=== PATIENT | female | born 1970 | race Caucasian/White ===

== ENCOUNTER 2020-09-25 23:26 | Emergency (ER) | payer MEDICAID ==
[~2020-09-25] VITALS: Ht 165.1 cm; Wt 100.0 kg
[~2020-09-25 23:26] MED LIST: PREN-88 PO
[2020-09-26] MEDS ORDERED: AMOXICILLIN 500 MG CAPSULE PO ONE (00:15)
[2020-09-26] MEDS ORDERED: MECLIZINE 25MG TABLET PO ONE (00:15)
[2020-09-26] MEDS ORDERED: CARBAMIDE PEROXIDE 6.5% OTIC SOLN 15ML RIGHT EAR ONE (00:15)
[2020-09-26] MEDS ORDERED: AMOXICILLIN 250MG CAPSULE PO SCH (00:45)
[2020-09-26 01:30] VITALS: BP 111/64
[2020-09-26] MEDS ORDERED: AMOX-494 MT (01:37)
[2020-09-26] MEDS ORDERED: MECL-159 MT (01:37)
== END 2020-09-26 01:50 | disposition home or self-care (01) ==
LOC: ER 23:46
DX: H61.21 Impacted cerumen, right ear (principal); H66.91 Otitis media, unspecified, right ear; R42 Dizziness and giddiness; I10 Essential (primary) hypertension; M32.9 Systemic lupus erythematosus, unspecified; Z88.5 Allergy status to narcotic agent
CPT/HCPCS: 93005; 99284; J8597

== ENCOUNTER 2020-09-26 11:29 | Emergency (ER) | payer MEDICAID ==
[~2020-09-26] VITALS: Ht 165.1 cm; Wt 90.0 kg
[~2020-09-26 11:29] MED LIST changes: +AMOX-494 MT; +MECL-159 MT
[2020-09-26 11:33] VITALS: BP 112/69
== END 2020-09-26 12:26 | disposition left against medical advice (07) ==
LOC: ER 11:29
DX: Z53.21 Procedure and treatment not carried out due to patient leaving prior to being seen by health care provider (principal)

== ENCOUNTER 2021-04-03 21:27 | Emergency (ER) | payer MEDICAID ==
[~2021-04-03] VITALS: Ht 165.1 cm; Wt 97.0 kg
[2021-04-03] MEDS ORDERED: SODIUM CHLORIDE 0.9% 1,000 ML IV ONE (23:15)
[2021-04-03 23:45] LABS: BASOPHILS % 0.6 % (0.0-2.0); EOSINOPHILS % 2.8 % (0.0-5.0); HEMATOCRIT. 33.6 % (36.0-48.0); HEMOGLOBIN. 11.5 g/dL (12.0-16.0); LYMPHOCYTES % 41.1 % (20.0-50.0); MEAN CORPUSCULAR HEMOGLOBIN 28.6 pg (28.0-32.0); MEAN CORPUSCULAR VOLUME 83.4 fL (81.0-99.0); MEAN PLATELET VOLUME 8.1 fl (7.4-10.4); MONOCYTES % 10.1 % (2.0-8.0); NEUTROPHILS % 45.4 % (40.0-76.0); PLATELET 162 x1000/uL (130-400); RED BLOOD CELL COUNT 4.03 mill/uL (4.2-5.4); RED CELL DISTRIBUTION WIDTH 22.2 % (11.6-14.6)
[2021-04-03 23:51] LABS: CHLORIDE 108 mEq/L (98-107)
[2021-04-04 00:02] LABS: B-HCG QUANTITATIVE < 1 mIU/mL (<3)
[2021-04-04 00:10] LABS: CLARITY URINE CLEAR (CLEAR); COLOR URINE YELLOW (YELLOW); KETONES URINE NEGATIVE (NEGATIVE); LEUKOCYTE ESTERASE URINE NEGATIVE (NEGATIVE); NITRITE URINE NEGATIVE (NEGATIVE); OCCULT BLOOD URINE 3+ (NEGATIVE); PROTEIN URINE NEGATIVE (NEGATIVE); UROBILINOGEN URINE 0.2 E.U./dL (0.2-1.0)
[2021-04-04 00:15] LABS: HCG SCREEN NEGATIVE
[2021-04-04] MEDS ORDERED: FERR-71 MT (01:29)
[2021-04-04 01:51] VITALS: BP 136/84
[2021-04-04 01:54] LABS: PLATELET ESTIMATE NORMAL
== END 2021-04-04 01:58 | disposition home or self-care (01) ==
LOC: ER 21:27
DX: D21.9 Benign neoplasm of connective and other soft tissue, unspecified (principal); Z88.6 Allergy status to analgesic agent; Z98.890 Other specified postprocedural states; Z90.49 Acquired absence of other specified parts of digestive tract
CPT/HCPCS: 36415; 76830; 76856; 80053; 81003; 81025; 84702; 84703; 85025; 86850; 86900; 86901; 99284; J7030

== ENCOUNTER 2024-01-29 14:19 | Emergency (ER) | payer MEDICAID, OTHER ==
[~2024-01-29] VITALS: Ht 162.6 cm; Wt 87.0 kg
[~2024-01-29 14:19] MED LIST changes: +FERR-71 MT; -MECL-159 MT; +MECL-299 MT
[2024-01-29 14:28] VITALS: BP 118/75; PULSE 83; RESP 20; TEMP 98.2; O2SAT 96
== END 2024-01-29 17:13 | disposition left against medical advice (07) ==
LOC: ER 14:19
DX: M54.2 Cervicalgia (principal); Z53.21 Procedure and treatment not carried out due to patient leaving prior to being seen by health care provider